=== PATIENT | male | born 1950 | race Native Hawaiian/Other Pacific Islander ===

== ENCOUNTER 2021-10-04 09:04 | Outpatient (CLI) | payer OTHER, BC | END 2021-10-04 19:57 | disposition home or self-care (01) | LOC: RAD 09:04 | PROVIDERS: ATTEND Physician Assistant | DX: R13.11 Dysphagia, oral phase (principal) ==

== ENCOUNTER 2023-04-27 09:58 | Observation (INO) | payer OTHER ==
[2023-04-27] VITALS (11 sets, daily range): BP systolic 119–142; BP diastolic 51–76; TEMP 97.9–98.1
[~2023-04-27] VITALS: Ht 182.9 cm; Wt 127.0 kg
[2023-04-27 10:25] LABS: PLATELET COUNT 154 K/uL (142-355)
[2023-04-27 10:30] LABS: POTASSIUM 4.5 mmol/L (3.6-5.2)
[2023-04-27 10:38] LABS: PARTIAL THROMBOPLASTIN TIME 24.7 SECONDS (23.9-36.7)
[2023-04-27 13:34] LABS: PLATELET COUNT 136 K/uL (142-355)
[2023-04-27 13:42] LABS: POTASSIUM 4.6 mmol/L (3.6-5.2)
[2023-04-27] MEDS ORDERED: LISI5TAB10 PO (15:14)
[2023-04-27] MEDS ORDERED: SERTRALINE HYD100 MG PO (15:15)
[2023-04-27] MEDS ORDERED: RANOLAZINE ER500 MG PO (15:15)
[2023-04-27] MEDS ORDERED: CLOPIDOGREL75 MG PO (15:16)
[2023-04-27] MEDS ORDERED: HYDRALAZINE50 MG PO (15:16)
[2023-04-27] MEDS ORDERED: METO-837 PO (15:17)
[2023-04-27] MEDS ORDERED: FAMO20TA4 PO (15:18)
[2023-04-27] MEDS ORDERED: ISOS30TA17 PO (15:19)
[2023-04-27] MEDS ORDERED: GLIP10TA55 PO (15:19)
[2023-04-27] MEDS ORDERED: TRAZODONE HYDRO50 MG PO (15:20)
[2023-04-27] MEDS ORDERED: LIPITOR40 MG PO (15:30)
== END 2023-04-27 17:56 | disposition left against medical advice (07) ==
LOC: ED 09:58 → MED/SURG 10:58
PROVIDERS: Family Medicine; ADMIT Nurse Practitioner; ATTEND Internal Medicine
DX: R07.89 Other chest pain (principal); E11.9 Type 2 diabetes mellitus without complications; I10 Essential (primary) hypertension; K21.9 Gastro-esophageal reflux disease without esophagitis; F32.A Depression, unspecified; Z53.29 Procedure and treatment not carried out because of patient's decision for other reasons
CPT/HCPCS: 80053; 82550; 84484; 85027; 85610; 85730; 93005; 96361; 96374; 99221; 99284; G0378; J2270